=== PATIENT | female | born 1995 | race Caucasian/White ===

== ENCOUNTER → 2017-05-30 | Outpatient (CLI) | payer BC ==
[~2017-05-30] MED LIST: BCPILLS PO
--- NOTE | 2017-05-30 12:31 | DIAGNOSTIC IMAGING REPORT ---
LEFT FOOT MIN 3 VIEWS ROUTINE CLINICAL HISTORY: 22 years-old Female presenting with left foot pain. TECHNIQUE: Frontal, oblique, and lateral views of the left foot were obtained. COMPARISON: None. FINDINGS: Bone island suspected at the head of the fourth metatarsal. No acute fracture or malalignment. No degenerative change. Regional soft tissues within normal limits. IMPRESSION: No acute osseous injury of the left foot. Electronically signed by: Bo Odonnell M.D. 05/30/2017 12:29 PM Dictated Date/Time: 05/30/2017 12:28 PM
== END | disposition home or self-care (01) ==
LOC: C.RAD1850 12:11
PROVIDERS: ATTEND Family Medicine
DX: M79.672 Pain in left foot (principal)

== ENCOUNTER 2017-06-19 09:07 | Emergency (ER) | payer BC, OTHER ==
[~2017-06-19] VITALS: Ht 175.3 cm; Wt 72.2 kg
[2017-06-19 09:19] VITALS: TEMP 36.6; Ht 175.3 cm; Wt 72.2 kg
[2017-06-19] MEDS ORDERED: BCPILLS PO (09:27)
[2017-06-19] MEDS ORDERED: IBUPROFEN 600 MG TAB PO STA (09:45)
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
[2017-06-19 10:01] VITALS: BP 107/63; PULSE 58; O2SAT 100
== END 2017-06-19 10:01 | disposition home or self-care (01) ==
LOC: C.EDB 09:09 → C.EDA 10:01
DX: S16.1XXA Strain of muscle, fascia and tendon at neck level, initial encounter (principal); M25.511 Pain in right shoulder; V49.40XA Driver injured in collision with unspecified motor vehicles in traffic accident, initial encounter; Y92.414 Local residential or business street as the place of occurrence of the external cause